=== PATIENT | male | born 1955 | race Caucasian/White ===

== ENCOUNTER 2017-03-28 10:41 | Emergency (ER) | payer SELFPAY ==
[~2017-03-28] VITALS: Ht 177.8 cm; Wt 86.0 kg
[2017-03-28 10:44] VITALS: BP 191/99; PULSE 68; RESP 14; TEMP 97.5; O2SAT 98
[2017-03-28 11:03] VITALS: BP 152/88; PULSE 65; RESP 18; O2SAT 96
[2017-03-28 11:07] VITALS: BP_SYST 152; BP_SYST 159; BP_SYST 175; BP_DIAS 100; BP_DIAS 88; BP_DIAS 95; RESP 18; RESP 19
[2017-03-28 11:30] VITALS: BP 152/88; PULSE 65; RESP 18; O2SAT 96
[2017-03-28] MEDS ORDERED: ASPIRIN 325 MG TAB PO ONE (11:30)
[2017-03-28] MEDS ORDERED: SODIUM CHLOR 0.9% 1000 ML INJ 1,000 ML IV ONE (11:30)
--- NOTE | 2017-03-28 11:43 | PD ---
HPI Chief Complaint: Medical Clearance Time Seen by Provider: 11:10 Travel History International Travel<30 days: No Contact w/Intl Traveler<30days: No Traveled to known affect area: No History of Present Illness HPI 61-year-old male that presents to the ED for evaluation of dizziness and weakness. Per patient she's had this since this morning. Per patient he woke up feeling fine and he had breakfast and started feeling somewhat "queasy" on his stomach. Per patient he was doing fine until he drove to work today and he started feeling very lightheaded and dizzy. Per patient when he walks he feels like he is bearing to the opposite side that he meant to. He denies any history of this in the past. No cough or runny nose. No fevers chills or sweats. 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 Patient denies any chest pain but states having some shortness of breath with the symptoms as well as an episode of diaphoresis and clamminess on all of his extremities. Per patient he denies any cardiac or CVA history. No history of this in the past. No history of cardiac disease versus having a history of high blood pressure in the past but takes no medications for it. No history of diabetes. History of smoking. Recent travel. No chest pain. Shortness of breath with exertion. Allergy to penicillin. No pain. No headache. Symptoms only with standing and sitting. Feels weak to his legs. PFSH Past Medical History Cardiovascular Problems: Yes (HTN) Hypertension: Yes Tetanus Vaccination: Unknown Influenza Vaccination: No Past Surgical History Appendectomy: Yes Joint Replacement: Yes (knee) Social History Alcohol Use: No Tobacco Use: Yes Substance Use: No Allergies-Medications (Allergen,Severity, Reaction): Coded Allergies: penicillin G (Verified Allergy, Unknown, 03/28/17) Reported Meds & Prescriptions Reported Meds & Active Scripts Active Meclizine (Meclizine HCl) 25 Mg Tab 25 Mg PO TID PRN Review of Systems Except as stated in HPI: all other systems reviewed are Neg Physical Exam Narrative GENERAL: SKIN: Warm and dry. HEAD: Atraumatic. Normocephalic. EYES: Pupils equal and round 4 mms reactive to light and accommodation. No scleral icterus. No injection or drainage. ENT: No nasal bleeding or discharge. Mucous membranes pink and moist. Tongue is midline. No uvula deviation. NECK: Trachea midline. No JVD. CARDIOVASCULAR: Regular rate and rhythm. RESPIRATORY: No accessory muscle use. Clear to auscultation. Breath sounds equal bilaterally. GASTROINTESTINAL: Abdomen soft, non-tender, nondistended. Hepatic and splenic margins not palpable. MUSCULOSKELETAL: Extremities without clubbing, cyanosis, or edema. No obvious deformities. Full range of motion of the upper and lower extremities bilaterally. 2+ pulses bilaterally. NEUROLOGICAL: Awake and alert. No obvious cranial nerve deficits. Motor grossly within normal limits. Five out of 5 muscle strength in the arms and legs. Normal speech. PSYCHIATRIC: Appropriate mood and affect; insight and judgment normal. Data Data Last Documented VS Vital Signs Date Time Temp Pulse Resp B/P (MAP) Pulse Ox O2 Delivery O2 Flow Rate FiO2 03/28/17 13:02 65 20 175/98 (123) 100 Room Air 03/28/17 10:44 97.5 Orders Orders Electrocardiogram (03/28/17 11:21) Complete Blood Count With Diff (03/28/17 11:21) Comprehensive Metabolic Panel (03/28/17 11:21) Ckmb (Isoenzyme) Profile (03/28/17 11:21) Troponin I (03/28/17 11:21) Lipase (03/28/17 11:21) D-Dimer (03/28/17 11:21) Magnesium (Mg) (03/28/17 11:21) Thyroid Stimulating Hormone (03/28/17 11:21) Chest, Single Ap (03/28/17 11:21) Iv Access Insert/Monitor (03/28/17 11:21) Ecg Monitoring (03/28/17 11:21) Oximetry (03/28/17 11:21) Sodium Chlor 0.9% 1000 Ml Inj (Ns 1000 M (03/28/17 11:30) Aspirin (Aspirin) (03/28/17 11:30) Ct Brain W/O Iv Contrast(Rout) (03/28/17 ) CKMB (03/28/17 11:35) CKMB% (03/28/17 11:35) Meclizine (Antivert) (03/28/17 13:00) Ed Discharge Order (03/28/17 13:03) Labs Laboratory Tests Test 03/28/17 11:35 White Blood Count 8.1 TH/MM3 Red Blood Count 4.54 MIL/MM3 Hemoglobin 14.5 GM/DL Hematocrit 40.7 % Mean Corpuscular Volume 89.6 FL Mean Corpuscular Hemoglobin 32.0 PG Mean Corpuscular Hemoglobin Concent 35.7 % Red Cell Distribution Width 13.7 % Platelet Count 162 TH/MM3 Mean Platelet Volume 9.4 FL Neutrophils (%) (Auto) 81.9 % Lymphocytes (%) (Auto) 8.2 % Monocytes (%) (Auto) 7.1 % Eosinophils (%) (Auto) 1.7 % Basophils (%) (Auto) 1.1 % Neutrophils # (Auto) 6.7 TH/MM3 Lymphocytes # (Auto) 0.7 TH/MM3 Monocytes # (Auto) 0.6 TH/MM3 Eosinophils # (Auto) 0.1 TH/MM3 Basophils # (Auto) 0.1 TH/MM3 CBC Comment DIFF FINAL Differential Comment D-Dimer Quantitative (PE/DVT) 0.28 MG/L FEU Blood Urea Nitrogen 21 MG/DL Creatinine 1.06 MG/DL Random Glucose 111 MG/DL Total Protein 7.0 GM/DL Albumin 3.8 GM/DL Calcium Level 8.4 MG/DL Magnesium Level 1.9 MG/DL Alkaline Phosphatase 78 U/L Aspartate Amino Transf (AST/SGOT) 16 U/L Alanine Aminotransferase (ALT/SGPT) 19 U/L Total Bilirubin 0.6 MG/DL Sodium Level 139 MEQ/L Potassium Level 4.3 MEQ/L Chloride Level 107 MEQ/L Carbon Dioxide Level 27.2 MEQ/L Anion Gap 5 MEQ/L Estimat Glomerular Filtration Rate 71 ML/MIN Total Creatine Kinase 172 U/L Creatine Kinase MB 1.9 NG/ML Troponin I LESS THAN 0.02 NG/ML Lipase 133 U/L Thyroid Stimulating Hormone 3rd Gen 0.629 uIU/ML MDM Medical Decision Making Medical Screen Exam Complete: Yes Emergency Medical Condition: Yes Medical Record Reviewed: Yes Interpretation(s) Last Impressions Chest X-Ray 03/28/17 1121 Signed Impressions: Service Date/Time: Tuesday, March 28, 2017 11:36 - CONCLUSION: 1. Minimal linear left lung base parenchymal opacity, presumably atelectasis/scarring. Gonzales Donnelly MD Head CT 03/28/17 0000 Signed Impressions: Service Date/Time: Tuesday, March 28, 2017 11:44 - CONCLUSION: Negative for acute process. Nahid Victoria MD FACR CBC & BMP Diagram 03/28/17 11:35 Total Protein 7.0, Albumin 3.8, Calcium Level 8.4 L, Magnesium Level 1.9, Alkaline Phosphatase 78, Aspartate Amino Transf (AST/SGOT) 16, Alanine Aminotransferase (ALT/SGPT) 19, Total Bilirubin 0.6 troponin and CKMB negative EKG shows no sign of acute ischemia or arrythmia read by me and attending. Differential Diagnosis Syncope versus presyncope versus ACS versus CVA versus electrolyte abnormality versus dehydration versus vertigo Narrative Course 61-year-old male that presents to the ED for evaluation of syncope. Patient was properly examined and was found to have signs and symptoms consistent appears to be possible cardiac syncope. Labs and imaging were ordered. Orthostatics were within normal limits. Labs and imaging showed no sign of acute disease. Patient was given fluids and aspirin with good results. Patient was given results. Because of patient's history and symptoms of the recommends admission for further syncope workup. Patient at this time declined stating that he needs to go to work for the race. Per patient he understands and by leaving we cannot completely diagnosed and he couldn't have significant injury or disease time I have not been found yet. Patient agrees and understands. Patient is sent reasons to come back. Patient was able to ambulate here with no sign of any distress and per patient he feels better. he was given meclizine to cover for vertigo with good results. Patient wants to follow up back at home. He still wants to go home. He understands risks. He is capable of making his own decision. AMA: The risks of leaving against medical advice without further evaluation treatment were discussed with the patient. These risks include cardiac dysfunction, cardiac dysrhythmia, possible heart attack, possible stroke or . The patient indicated understanding of these risks and appeared to have the capacity to make this decision. Patient will be discharged with prescription for meclizine to cover for vertigo. I do recommend close follow with PCP. See ED worsening symptoms. Diagnosis Primary Impression: Pre-syncope Additional Impression: Vertigo Patient Instructions: General Instructions Additional Instructions: Take medications as prescribed. Follow with PCP. See ED worsening symptoms. Med/Other Pt SpecificInfo: Prescription(s) given Scripts Meclizine (Meclizine) 25 Mg Tab 25 MG PO TID Y for VERTIGO, #20 TAB 0 Refills Prov: Nick Okeefe MD 03/28/17 Disposition: 01 DISCHARGE HOME Condition: Uriel Collins Mar 28, 2017 11:43
--- NOTE | 2017-03-28 11:49 | RADRPT ---
EXAM DATE/TIME: 03/28/2017 11:36 [facility] COMPARISON: No previous studies available for comparison. INDICATIONS : Dizziness MEDICAL HISTORY : None. SURGICAL HISTORY : None. ENCOUNTER: Initial ACUITY: 1 day PAIN SCORE: 0/10 LOCATION: Bilateral chest FINDINGS: Minimal linear parenchymal opacity in the left lung base. Cardiomediastinal contours are within delfino l limits. Bony thorax is intact. CONCLUSION: 1. Minimal linear left lung base parenchymal opacity, presumably atelectasis/scarring. Gonzales Donnelly MD on March 28, 2017 at 11:47 Board Certified Radiologist. This report was verified electronically.
--- NOTE | 2017-03-28 11:55 | RADRPT ---
EXAM DATE/TIME: 03/28/2017 11:44 [facility] COMPARISON: No previous studies available for comparison. INDICATIONS : Dizziness with Abdominal pain RADIATION DOSE: 56.35 CTDIvol (mGy) MEDICAL HISTORY : Cardiovascular disease. Hypertension. SURGICAL HISTORY : Appendectomy. ENCOUNTER: Initial ACUITY: 1 day PAIN SCALE: 0/10 LOCATION: Bilateral cranial TECHNIQUE: Multiple contiguous axial images were obtained of the head. Using automated exposure control and adj ustment of the mA and/or kV according to patient size, radiation dose was kept as low as reasonably a chievable to obtain optimal diagnostic quality images. DICOM format image data is available electro nically for review and comparison. FINDINGS: CEREBRUM: The ventricles are normal for age. No evidence of midline shift, mass lesion, hemorrhage or acute in farction. No extra-axial fluid collections are seen. POSTERIOR FOSSA: The cerebellum and brainstem are intact. The 4th ventricle is midline. The cerebellopontine angle i s unremarkable. EXTRACRANIAL: The visualized portion of the orbits is intact. SKULL: The calvaria is intact. No evidence of skull fracture. CONCLUSION: Negative for acute process. Nahid Victoria MD FACR on March 28, 2017 at 11:54 Board Certified Radiologist. This report was verified electronically.
[2017-03-28 12:06] LABS: AUTOMATED NEUTROPHIL # 6.7 TH/MM3 (1.8-7.7); BASOPHIL # 0.1 TH/MM3 (0-0.2); BASOPHIL % 1.1 % (0.0-2.0); EOSINOPHIL # 0.1 TH/MM3 (0-0.4); EOSINOPHIL % 1.7 % (0.0-4.0); HEMATOCRIT 40.7 % (39.0-51.0); HEMOGLOBIN 14.5 GM/DL (13.0-17.0); LYMPH % 8.2 % (9.0-44.0); LYMPHOCYTE # 0.7 TH/MM3 (1.0-4.8); MEAN CELL VOLUME 89.6 FL (80.0-100.0); MEAN CORPUSCULAR HGB CONC 35.7 % (32.0-36.0); MEAN PLATELET VOLUME 9.4 FL (7.0-11.0); MONO % 7.1 % (0.0-8.0); MONOCYTE # 0.6 TH/MM3 (0-0.9); NEUT % 81.9 % (16.0-70.0); PLATELET COUNT 162 TH/MM3 (150-450); RED BLOOD COUNT 4.54 MIL/MM3 (4.50-5.90); RED CELL DISTRIBUTION WIDTH 13.7 % (11.6-17.2); WHITE BLOOD COUNT 8.1 TH/MM3 (4.0-11.0)
[2017-03-28 12:40] LABS: ALKALINE PHOSPHATASE 78 U/L (45-117); ALT (GPT) 19 U/L (12-78); TOTAL BILIRUBIN ADULT 0.6 MG/DL (0.2-1.0); TROPONIN I LESS THAN 0.02 NG/ML (0.02-0.05)
[2017-03-28 12:43] LABS: ALBUMIN 3.8 GM/DL (3.4-5.0); AST (GOT) 16 U/L (15-37); BICARBONATE 27.2 MEQ/L (21.0-32.0); BLOOD UREA NITROGEN 21 MG/DL (7-18); CALCIUM 8.4 MG/DL (8.5-10.1); CHLORIDE 107 MEQ/L (98-107); CREATININE 1.06 MG/DL (0.60-1.30); GLOMERULAR FILTRATION RATE 71 ML/MIN (>89); GLUCOSE,RANDOM 111 MG/DL (74-106); MAGNESIUM 1.9 MG/DL (1.5-2.5); SODIUM (NA) 139 MEQ/L (136-145)
[2017-03-28] MEDS ORDERED: MECL-62 PO (12:59)
[2017-03-28] MEDS ORDERED: MECLIZINE HCL 25 MG TAB PO ONE (13:00)
[2017-03-28 13:02] VITALS: BP 175/98; PULSE 65; RESP 20; O2SAT 100
[2017-03-28 13:14] VITALS: BP 175/98
--- NOTE | 2017-03-29 13:29 | EKG ---
Date Performed: 03/28/2017 Time Performed: 11:31:37 PTAGE: 61 years EKG: Sinus rhythm NORMAL ECG NO PREVIOUS TRACING DOCTOR: Mike Sagastume Interpretating Date/Time 03/29/2017 13:25:17
== END 2017-03-28 13:15 | disposition home or self-care (01) ==
LOC: NEPC 10:41
DX: R55 Syncope and collapse (principal); R42 Dizziness and giddiness; R53.1 Weakness; R06.02 Shortness of breath; R61 Generalized hyperhidrosis; R23.1 Pallor; I10 Essential (primary) hypertension; Z72.0 Tobacco use
CPT/HCPCS: 70450; 71045; 80053; 82550; 82552; 83690; 83735; 84443; 84484; 85025; 85379; 93005; 96360; 99285; J7030